=== PATIENT | female | born 1960 | race Caucasian/White ===

== ENCOUNTER → 2022-12-05 | Outpatient (CLI) | payer BC ==
--- NOTE | 2022-12-17 09:12 | MM ---
Reason for Exam: Screening (asymptomatic). Last mammogram was performed 3 year(s) and 2 month(s) ago. Patient History: Menarche at age 8. First Full-Term at age 20. Left ovary removed at age 53. Right ovary removed at age 53. Hysterectomy at age 53. Postmenopausal. Patient has history of breast feeding. Endometrial cancer, age 53. Risk Values: Sonam 5 year model risk: 1.5%. NCI Lifetime model risk: 6.8%. Prior Study Comparison: 08/22/2013 Bilateral Screening Mammogram, [facility]. 10/10/2014 Bilateral Screening Mammogram, [facility]. 02/13/2016 Bilateral Screening Mammogram, [facility]. 09/28/2018 Bilateral Screening Mammogram, [facility]. 10/10/2019 Bilateral Screening Mammogram, [facility]. Tissue Density: There are scattered fibroglandular densities. Findings: Analyzed By CAD. There is no suspicious group of microcalcifications or new suspicious mass in either breast. Overall Assessment: Benign, BI-RAD 2 Management: Screening Mammogram of both breasts in 1 year. . Patient should continue monthly self-breast exams. A clinical breast exam by your physician is recommended on an annual basis. This exam should not preclude additional follow-up of suspicious palpable abnormalities. Note on Sonam scores and lifetime risk: 1. A Sonam score greater than 3% is considered moderate risk. If this is the case, consider specialist referral to assess eligibility for a risk reducing agent. 2. If overall lifetime risk for the development of breast cancer is 20% or higher, the patient may qualify for future screening with alternating mammogram and breast MRI. Electronically signed and approved by: Juarez Craig M.D. Radiologis
== END | disposition home or self-care (01) ==
LOC: RADMAMWWP 07:17
PROVIDERS: ATTEND Family Medicine
DX: Z12.31 Encounter for screening mammogram for malignant neoplasm of breast (principal); Z78.0 Asymptomatic menopausal state
CPT/HCPCS: 77067

== ENCOUNTER → 2023-08-28 | Outpatient (CLI) | payer BC ==
--- NOTE | 2023-08-28 13:03 | XR ---
EXAMINATION TYPE: XR finger LT DATE OF EXAM: 08/28/2023 11:52 AM CLINICAL INDICATION:Female, 63 years old with history of PAIN; [facility] COMPARISON: None TECHNIQUE: XR finger LT Frontal, lateral and oblique views were obtained. FINDINGS: Normal alignment of the visualized joints. No acute osseous pathology is identified. No e vidence of soft tissue swelling. Multifocal degeneration changes with joint space narrowing and osteo phyte formation. IMPRESSION: 1. No acute osseous pathology. 2. Multifocal osteoarthrosis throughout the joints of the hand.
--- NOTE | 2023-08-28 13:04 | XR ---
EXAMINATION TYPE: XR clavicle LT, XR shoulder complete LT DATE OF EXAM: 08/28/2023 11:53 AM CLINICAL INDICATION:Female, 63 years old with history of PAIN; [facility] COMPARISON: 08/20/2023 TECHNIQUE: XR clavicle LT, XR shoulder complete LT examined in AP and cephalic tilt views . Shoulder evaluated in frontal external rotation and scapular Y views. FINDINGS: No evidence of acute or chronic osseous pathology, joint dislocation or soft tissue swelling. Mild de generation changes the acromioclavicular joint. IMPRESSION: 1. No evidence for fracture. 2. Lump at the distal clavicle felt to correlate with hypertrophy of the distal clavicle.
== END | disposition home or self-care (01) ==
LOC: RADXRMAIN 11:06
PROVIDERS: ATTEND Family Medicine
DX: M19.042 Primary osteoarthritis, left hand (principal); R22.32 Localized swelling, mass and lump, left upper limb

== ENCOUNTER → 2023-12-07 | Outpatient (CLI) | payer BC ==
--- NOTE | 2023-12-09 10:37 | MM ---
Reason for Exam: Screening (asymptomatic). Last screening mammogram was performed 12 month(s) ago. Patient History: Menarche at age 8. First Full-Term at age 20. Left ovary removed at age 53. Right ovary removed at age 53. Hysterectomy at age 53. Postmenopausal. Patient has history of breast feeding. Endometrial cancer, age 53. Risk Values: Sonam 5 year model risk: 1.5%. NCI Lifetime model risk: 6.6%. Prior Study Comparison: 09/28/2018 Bilateral Screening Mammogram, [facility]. 10/10/2019 Bilateral Screening Mammogram, [facility]. 12/05/2022 Bilateral MG screening mammo w CAD, [facility]. Tissue Density: There are scattered areas of fibroglandular density. Findings: Analyzed By CAD. There is no suspicious group of microcalcifications or new suspicious mass in either breast. Overall Assessment: Benign, BI-RAD 2 Management: Screening Mammogram of both breasts in 1 year. . Patient should continue monthly self-breast exams. A clinical breast exam by your physician is recommended on an annual basis. This exam should not preclude additional follow-up of suspicious palpable abnormalities. Note on Sonam scores and lifetime risk: 1. A Sonam score greater than 3% is considered moderate risk. If this is the case, consider specialist referral to assess eligibility for a risk reducing agent. 2. If overall lifetime risk for the development of breast cancer is 20% or higher, the patient may qualify for future screening with alternating mammogram and breast MRI. [facility], , 12/09/2023 10:34 AM. Electronically signed and approved by: Juarez Craig M.D. Radiologis
== END | disposition home or self-care (01) ==
LOC: RADMAMWWP 16:24
PROVIDERS: ATTEND Family Medicine
CPT/HCPCS: 77063; 77067

== ENCOUNTER → 2024-08-25 | Outpatient (CLI) | payer BC ==
[2024-08-25 13:55] VITALS: BP 129/80; PULSE 98; RESP 16; TEMP 98.2
--- NOTE | 2024-08-25 14:26 | P.SLEEP ---
History of Present Illness DATE: 08/25/2024 CONSULTATION/NEW PATIENT EVALUATION HISTORY OF PRESENT ILLNESS/SLEEP-WAKE EVALUATION: 64-year-old lady had been e valuated in the sleep center for possible obstructive sleep apnea hypopnea syndrome. SLEEP SCHEDULE: Usually sleep schedule from 1011 PM to 67 AM 7 days a week. FALLING ASLEEP: Sometimes patient has difficulties with falling asleep, although no TV in bedroom. DURING SLEEP: Patient sleeps on the side and back position with extremely loud snoring, witnessed episodes of stop breathing during the sleep by her . Positive history of grinding teeth. Patient wakes up from sleep up to 3 times with nocturia. No history of hypnogogical hallucinations, sleep paralysis, or cataplexy. DURING THE DAY/WAKE STATE: In the morning patient wake up tired, falling asleep during the day, [place] Sleepiness Scale is not very high range of 19. Patient may take 1 nap during the day usually at afternoon time. PAST MEDICAL HISTORY: Seasonal allergy, plantar fasciitis. PAST SURGICAL HISTORY: Total hysterectomy for cancer. MEDICATIONS: Please see below. SOCIAL HISTORY: Please see below. FAMILY HISTORY: Positive for snoring and sleep apnea in the family. REVIEW OF SYSTEMS: Loud snoring, multiple awakenings from sleep, significant excessive daytime sleepiness. No fevers. No double vision. No recent chest pain. No shortness of breath. No abdominal pain. No bleeding episodes. No blood in urine. No seizure episodes. PHYSICAL EXAMINATION: GENERAL: A pleasant patient without any distress. VITAL SIGNS: Please see below weight 224 pounds, BMI 37.0. HEENT: PERRLA, EOMI. Evaluation of oropharynx showed tongue protrudes midline, low position of soft palate Mallampati 4, retrognathia 2 mm, restriction of nasal breathing on the right side. NECK: Supple. No JVD. Thyroid is not palpable. 16 inches in circumference. LUNGS: Clear to percussion and to auscultation. Good air exchange. No wheezing or rhonchi. HEART: S1, S2 regular. No murmurs, gallops or rubs. ABDOMEN: Soft and nontender. Bowel sounds are present. No organomegaly appreciated. EXTREMITIES: No clubbing or cyanosis. FARMWORKER GRAIN: Awake, alert, and oriented x3. Cranial nerves 2 to 7 intact. There is no fasciculation or atrophy noted. No focal deficits observed. ASSESSMENT: 1. Loud snoring, witnessed episodes of stop breathing during the sleep, extremely low position of soft palate Mallampati 4, wide neck 16 inches in circumference, significant sleepiness with high [place] Sleepiness Scale 19. Obstructive sleep apnea hypopnea syndrome. 2. Obesity, BMI 37.2. 3. Status post total hysterectomy for cancer. 4. Seasonal allergy. 5 restriction of nasal breathing. PLAN: 1. Polysomnography for evaluation of patient's breathing during sleep. 2. Following plan after reading sleep study. 3. Preferable position during sleep on the side. 4. No driving if patient feels any sleepiness. Patient is aware of civil and criminal liability for unsafe driving. 5. Sleep hygiene with regular sleep time for at least 7.5-8 hours. 6. Watching and losing weight. Thank you very much for referring this patient for consultation. Sincerely, Festus Jimenez MD, PhD, FAASM. Diplomat of [place] [employer], Sleep Medicine Board by [place] [employer] [place] [employer] [facility] [place] cc: Annalisa Kaplan MD Past Medical History Past Medical History: Cancer Additional Past Medical History / Comment(s): uterine fibroids; wears glasses, uterine cancer History of Any Multi-Drug Resistant Organisms: None Reported Past Surgical History: Hysterectomy, Orthopedic Surgery, Tubal Ligation Additional Past Surgical History / Comment(s): bilateral heel spurs; 3 natural child births; colonoscopy Past Anesthesia/Blood Transfusion Reactions: No Reported Reaction, Motion Sickness Past Psychological History: No Psychological Hx Reported Smoking Status: Never smoker Past Alcohol Use History: Occasional Past Drug Use History: None Reported - Past Family History Father Additional Family Medical History / Comment(s): pre-diabetic, SNORING Mother Family Medical History: Hyperlipidemia, Hypertension Medications and Allergies Home Medications Medication Instructions Recorded Confirmed Type [place]-3 Fatty Acids/Fish Oil [Fish 1 tab PO DAILY 08/29/15 08/29/15 History Oil 1,000 mg Softgel] Tamoxifen [Nolvadex] 4 tab PO DAILY 08/29/15 08/29/15 History Hydrocodone/Acetaminophen [[place] 1 each PO Q6HR PRN #20 tab 08/30/15 Rx 5-325] Allergies Allergy/AdvReac Type Severity Reaction Status Date / Time No Known Allergies Allergy Verified 08/29/15 22:54 Physical Exam Vitals: Vital Signs Temp Pulse Resp BP Pulse Ox 08/25/24 13:54 98.2 F 98 16 129/80 94 L Intake and Output 08/24/24 08/25/24 08/25/24 22:59 06:59 14:59 Other: Weight 101.605 kg Sleep Note - Sleep Data ESS Total: 19 - Sleep Note Sleep Note: Temperature: 98.2 F Pulse Rate: 98 Respiratory Rate: 16 Blood Pressure: 129/80 SpO2: 94 Height: 5 ft 5 in Weight: 101.605 kg BMI: Neck Circumference: 16
== END ==
LOC: 3 N SLEEP 13:28
PROVIDERS: ATTEND Internal Medicine
DX: G47.33 Obstructive sleep apnea (adult) (pediatric) (principal); E66.9 Obesity, unspecified; J30.2 Other seasonal allergic rhinitis; R09.81 Nasal congestion; Z90.710 Acquired absence of both cervix and uterus; Z68.37 Body mass index [BMI] 37.0-37.9, adult
CPT/HCPCS: 99211

== ENCOUNTER → 2024-09-28 | Outpatient (CLI) | payer BC | LOC: 3 N SLEEP 17:11 | PROVIDERS: ATTEND Internal Medicine | DX: G47.33 Obstructive sleep apnea (adult) (pediatric) (principal); G47.61 Periodic limb movement disorder; Z99.89 Dependence on other enabling machines and devices ==